=== PATIENT | female | born 1940 | race Caucasian/White ===

== ENCOUNTER 2018-10-09 07:56 | Day surgery (SDC) | payer MEDICARE, OTHER ==
[2018-10-05 13:05] LABS: BASOPHILS % (AUTO) 0.7 % (0-1); EOSINOPHILS # (AUTO) 0.2 X10'3 (0-0.9); EOSINOPHILS % (AUTO) 3.3 % (0-6); HEMATOCRIT 35.5 % (35.0-45.0); LYMPHOCYTES % (AUTO) 34.3 % (21-51); MEAN CORPUSCULAR HEMOGLOBIN 30.1 PG (27.0-31.0); MEAN CORPUSCULAR HGB CONC 33.8 g/dL (33.0-36.5); MEAN CORPUSCULAR VOLUME 89.2 FL (78-98); MEAN PLATELET VOLUME 9.4 FL (7.4-10.4); MONOCYTES # (AUTO) 0.5 X10'3 (0-0.9); MONOCYTES % (AUTO) 8.4 % (2-12); NEUTROPHILS # (AUTO) 3.1 X10'3 (1.8-7.7); NEUTROPHILS % (AUTO) 53.3 % (42-75); PLATELET COUNT 187 X10'3 (140-440); RED BLOOD COUNT 3.98 X10'6 (4.20-5.60); RED CELL DISTRIBUTION WIDTH 14.6 % (11.5-14.5); WHITE BLOOD COUNT 5.7 X10'3 (4.5-11.0)
[2018-10-05 13:20] LABS: PARTIAL THROMBOPLASTIN TIME 26 SECONDS (22-32)
[2018-10-05 13:42] LABS: ALBUMIN 3.8 G/DL (3.4-5.0); ANION GAP 11 (8-16); BLOOD UREA NITROGEN 30 MG/DL (7-18); BUN/CREATININE RATIO 17.6 (6.6-38.0); CALCIUM 9.3 MG/DL (8.5-10.1); CHLORIDE 105 MMOL/L (99-107); GLUCOSE 266 MG/DL (70-104); POTASSIUM 4.7 MMOL/L (3.5-5.1); SODIUM 139 MMOL/L (135-145); TOTAL CARBON DIOXIDE 23.2 MMOL/L (24-32); eGFR 29 ML/MIN
[~2018-10-09] VITALS: Ht 165.1 cm; Wt 124.6 kg
[2018-10-09] VITALS (11 sets, daily range): BP systolic 137–161; BP diastolic 58–79
[~2018-10-09 07:56] MED LIST: AMLO5TAB16 PO; CIPR-259 PO; DEXL60CA3 PO; HYDR-4383 PO; INSULIN PUMP SQ; LEVO50TA8 PO; MAGN800O PO; METO-395 PO; [UNRECOGNIZED DRUG - CODE] SQ
[2018-10-09] MEDS ORDERED: diphenhydrAMINE 25mg capsule PO PRN (08:20)
[2018-10-09] MEDS ORDERED: normal saline 1,000 ML IV SCH (08:20)
[2018-10-09] MEDS ORDERED: LORazepam 0.5 MG tablet PO PRN (08:20)
[2018-10-09] MEDS ORDERED: LORA10TA61 PO (08:44)
[2018-10-09] MEDS ORDERED: LACT1CAP65 PO (08:44)
[2018-10-09] MEDS ORDERED: VITA-268 PO (08:44)
[2018-10-09] MEDS ORDERED: OLME1TAB24 PO (08:44)
[2018-10-09] MEDS ORDERED: MAGN400C PO (08:44)
[2018-10-09] MEDS ORDERED: LEVO75TA PO (08:44)
[2018-10-09] MEDS ORDERED: CHOL100024 PO (08:44)
[2018-10-09] MEDS ORDERED: ASPI-1264 PO (08:44)
[2018-10-09] MEDS ORDERED: pneumococcal 23-VAL P-sac vacc 25 mcg/0.5ml vial IMVAC ONE (09:50)
[2018-10-09] MEDS ORDERED: LIDOcaine 1% (10mg/ml)w/preservative injection 20ml MDV ONE (13:23)
[2018-10-09] MEDS ORDERED: heparin 1,000 UNITS/NS 500ml 500 ML ONE (13:24)
[2018-10-09] MEDS ORDERED: iohexol 350MG/ML 100ml bottle IV ONE (13:24)
[2018-10-09] MEDS ORDERED: fentaNYL/PF 50MCG/1 ML 2ML syringe ONE (14:06)
[2018-10-09] MEDS ORDERED: midazolam 2 mg/2 ml injection ONE (14:06)
[2018-10-09] MEDS ORDERED: ondansetron/PF 4mg/2ml inj IV PRN (15:00)
[2018-10-09] MEDS ORDERED: HYDROcodone/acetaminophen 5mg/325mg tablet PO PRN (15:00)
[2018-10-09] MEDS ORDERED: OXAZEpam 15mg capsule PO PRN (15:00)
[2018-10-09] MEDS ORDERED: HYDROcodone/acetaminophen 10/325mg tab PO PRN (15:00)
[2018-10-09] MEDS ORDERED: proCHLORperazine 10 MG/2 ml inj IV PRN (15:00)
--- NOTE | 2018-10-09 16:00 | NUR ---
Problems reprioritized. Patient report given, questions answered & plan of care reviewed with ANTELMO DAMIAN.
[2018-10-09] MEDS ORDERED: furosemide 20 MG/2 ML vial IV ONE (16:20)
== END 2018-10-09 18:04 | disposition home or self-care (01) ==
LOC: SSTAY O 07:56
PROVIDERS: ATTEND Internal Medicine Interventional Cardiology
DX: I25.10 Atherosclerotic heart disease of native coronary artery without angina pectoris (principal); E11.9 Type 2 diabetes mellitus without complications; I10 Essential (primary) hypertension; E66.9 Obesity, unspecified; E03.9 Hypothyroidism, unspecified; G47.33 Obstructive sleep apnea (adult) (pediatric)
CPT/HCPCS: 36415; 80048; 82948; 85025; 85610; 85730; 93005; 93458; 99152; A6257; J1644; J1940; J2001; J2250; J3010; J7030; Q0163; Q9967; 99153; A4620; C1760; C1769

== ENCOUNTER 2019-04-22 19:21 | Emergency (ER) | payer MEDICARE, OTHER ==
[~2019-04-22] VITALS: Ht 165.1 cm; Wt 125.0 kg
[~2019-04-22 19:21] MED LIST changes: -AMLO5TAB16 PO; +ASPI-1264 PO; +CHOL100024 PO; -CIPR-259 PO; -HYDR-4383 PO; +LACT1CAP65 PO; -LEVO50TA8 PO; +LEVO75TA PO; +LIDOcaine 1% W/epiNEPHrine 1:100,000 20ml vial ONE; +LORA10TA61 PO; +MAGN400C PO; -MAGN800O PO; -METO-395 PO; +OLME1TAB24 PO; +VITA-268 PO
[2019-04-22 19:23] VITALS: BP 156/60
[2019-04-22] MEDS ORDERED: DOXY100T2 PO (21:49)
== END 2019-04-22 22:22 | disposition home or self-care (01) ==
LOC: ER 19:22
DX: S81.811A Laceration without foreign body, right lower leg, initial encounter (principal); M25.532 Pain in left wrist; I10 Essential (primary) hypertension; E11.9 Type 2 diabetes mellitus without complications; F10.99 Alcohol use, unspecified with unspecified alcohol-induced disorder; G89.29 Other chronic pain; Z90.49 Acquired absence of other specified parts of digestive tract; Z98.890 Other specified postprocedural states; Z88.0 Allergy status to penicillin; Z88.1 Allergy status to other antibiotic agents; Z88.5 Allergy status to narcotic agent; Z79.82 Long term (current) use of aspirin; Z79.4 Long term (current) use of insulin; Z79.899 Other long term (current) drug therapy; W01.0XXA Fall on same level from slipping, tripping and stumbling without subsequent striking against object, initial encounter; Y93.89 Activity, other specified; Y92.89 Other specified places as the place of occurrence of the external cause; Y99.8 Other external cause status; Y90.9 Presence of alcohol in blood, level not specified
CPT/HCPCS: 12002; 73110; 99284

== ENCOUNTER 2019-10-02 15:56 | Emergency (ER) | payer MEDICARE, OTHER ==
[~2019-10-02] VITALS: Ht 165.1 cm; Wt 118.2 kg
[~2019-10-02 15:56] MED LIST changes: -LIDOcaine 1% W/epiNEPHrine 1:100,000 20ml vial ONE; -LORA10TA61 PO
[2019-10-02 16:59] LABS: BASOPHILS % (AUTO) 0.6 % (0-1); EOSINOPHILS # (AUTO) 0.2 X10'3 (0-0.9); EOSINOPHILS % (AUTO) 3.3 % (0-6); HEMATOCRIT 32.4 % (35.0-45.0); LYMPHOCYTES # (AUTO) 1.6 X10'3 (1.1-4.8); LYMPHOCYTES % (AUTO) 24.5 % (21-51); MEAN CORPUSCULAR HEMOGLOBIN 29.4 PG (27.0-31.0); MEAN CORPUSCULAR HGB CONC 33.9 g/dL (33.0-36.5); MEAN CORPUSCULAR VOLUME 86.6 FL (78-98); MEAN PLATELET VOLUME 8.7 FL (7.4-10.4); MONOCYTES # (AUTO) 0.5 X10'3 (0-0.9); MONOCYTES % (AUTO) 7.9 % (2-12); NEUTROPHILS # (AUTO) 4.1 X10'3 (1.8-7.7); NEUTROPHILS % (AUTO) 63.7 % (42-75); PLATELET COUNT 232 X10'3 (140-440); RED BLOOD COUNT 3.74 X10'6 (4.20-5.60); WHITE BLOOD COUNT 6.5 X10'3 (4.5-11.0)
[2019-10-02 17:15] LABS: ALANINE AMINOTRANSFERASE 192 U/L (12-78); ALBUMIN 3.5 G/DL (3.4-5.0); ALBUMIN/GLOBULIN RATIO 0.9 (1.1-1.5); ALKALINE PHOSPHATASE 112 IU/L (46-116); AMYLASE 35 U/L (25-115); ANION GAP 7 (8-16); ASPARTATE AMINO TRANSFERASE 190 U/L (10-37); BILIRUBIN,TOTAL 0.4 MG/DL (0.1-1.0); BLOOD UREA NITROGEN 25 MG/DL (7-18); BUN/CREATININE RATIO 19.4 (6.6-38.0); CALCIUM 9.3 MG/DL (8.5-10.1); CHLORIDE 90 MMOL/L (99-107); CREATININE 1.29 MG/DL (0.40-0.90); GLUCOSE 123 MG/DL (70-104); LIPASE 409 U/L (73-393); POTASSIUM 4.6 MMOL/L (3.5-5.1); SODIUM 122 MMOL/L (135-145); TOTAL CARBON DIOXIDE 24.9 MMOL/L (24-32); TOTAL PROTEIN 7.6 G/DL (6.4-8.2); eGFR 40 ML/MIN
--- NOTE | 2019-10-02 18:33 | NUR ---
ACCUCHECK 136, PT IS DIABETIC, TYPE 2, AND MANGED WITH INSULIN PUMP. AWAITING ROOM. VS RECHECKED AND STABLE. CONTINUES WITH8 OUT OF 10 PAIN. REPORTS CHRONIC BACK PAIN, SAWANT PAIN (ALTHOUGH IMPROVED OVER PAST HR0 AND EPIGASTRIC PAIN. PT REPORTS HER SON IS IN THE PARKING LOT WAITING FOR HER AND WILL BE HER DC TRANSPORT.
[2019-10-02 19:00] LABS: CLARITY,URINE CLEAR (Clear); COLOR,URINE YELLOW (Yellow); GLUCOSE, URINE NEGATIVE (Neg); KETONES,URINE NEGATIVE (Neg); LEUKOCYTE ESTERASE ,URINE NEGATIVE (Neg); NITRITES, URINE NEGATIVE (Neg); OCCULT BLOOD,URINE NEGATIVE (Neg); PH,URINE 5.5 (4.8-8.0); PROTEIN,URINE NEGATIVE (Neg); UROBILINOGEN,URINE 0.2 E.U/dL (0.2-1.0)
[2019-10-02 19:08] LABS: UA COLLECTION TYPE OTHER
[2019-10-02 21:23] VITALS: BP 164/58
== END 2019-10-02 21:34 | disposition home or self-care (01) ==
LOC: ER 15:57
DX: K86.89 Other specified diseases of pancreas (principal); K76.9 Liver disease, unspecified; R10.13 Epigastric pain; R10.12 Left upper quadrant pain; G89.29 Other chronic pain; I12.9 Hypertensive chronic kidney disease with stage 1 through stage 4 chronic kidney disease, or unspecified chronic kidney disease; E11.22 Type 2 diabetes mellitus with diabetic chronic kidney disease; N18.3 Chronic kidney disease, stage 3 (moderate); Z90.49 Acquired absence of other specified parts of digestive tract; Z98.890 Other specified postprocedural states; Z88.0 Allergy status to penicillin; Z88.1 Allergy status to other antibiotic agents; Z88.5 Allergy status to narcotic agent; Z79.82 Long term (current) use of aspirin; Z79.899 Other long term (current) drug therapy
CPT/HCPCS: 36415; 74176; 80053; 81003; 82150; 82948; 83690; 85025; 99284